=== PATIENT | male | born 1975 ===

== ENCOUNTER 2018-09-14 17:52 | Emergency (ER) | payer BC ==
[2018-09-14 18:18] VITALS: RESP 20; O2SAT 96
--- NOTE | 2018-09-14 18:35 | C.PDOC ---
History Of Present Illness 43 year old male presents to the ED for evaluation of flu-like symptoms which began yesterday. Patient reports generalized body aches, subjective fever, chills, and cough. He has been taking Vicks cough and cold medication and Advil without significant relief. Patient denies nausea, vomiting, diarrhea. Time Seen by Provider: 09/14/18 18:25 Chief Complaint (Nursing): Fever History Per: Patient History/Exam Limitations: no limitations Onset/Duration Of Symptoms: Hrs Current Symptoms Are (Timing): Still Present Associated Symptoms: Fever, Chills, Cough. denies: Nausea, Vomiting, Diarrhea Additional History Per: Patient Past Medical History Reviewed: Historical Data, Nursing Documentation, Vital Signs Vital Signs: Last Vital Signs Temp 102.3 F H 09/14/18 18:15 Pulse 108 H 09/14/18 18:15 Resp 20 09/14/18 18:15 BP 136/74 09/14/18 18:15 Pulse Ox 96 09/14/18 18:15 - Medical History PMH: No Chronic Diseases Surgical History: No Surg Hx Family History: States: Unknown Family Hx - Social History Hx Alcohol Use: No Hx Substance Use: No Review Of Systems Constitutional: Positive for: Fever, Chills Respiratory: Positive for: Cough Gastrointestinal: Negative for: Nausea, Vomiting, Diarrhea Musculoskeletal: Positive for: Other (generalized body aches ) Physical Exam - Physical Exam Appears: Non-toxic, No Acute Distress, Other (ill-appearing ) Skin: Normal Color, Warm, Dry, Other (warm to touch ) Head: Atraumatic, Normacephalic Eye(s): bilateral: Other (watery and erythematous ) Nose: Normal, No Discharge Oral Mucosa: Moist Throat: Erythema (mild ), No Exudate Neck: Supple Chest: Symmetrical, No Deformity, No Tenderness Cardiovascular: Rhythm Regular, No Murmur Respiratory: Normal Breath Sounds, No Rales, No Rhonchi, No Wheezing Extremity: Normal ROM, Capillary Refill (less than 2 seconds) Neurological/Psych: Oriented x3, Normal Speech, Normal Cognition ED Course And Treatment O2 Sat by Pulse Oximetry: 96 (on RA) Pulse Ox Interpretation: Normal Medical Decision Making Medical Decision Making: Progress: Patient with presumptive diagnosis of flu. Tylenol PO, Motrin PO and Tamiflu PO given. Disposition Counseled Patient/Family Regarding: Diagnosis, Need For Followup, Rx Given - Disposition Disposition: HOME/ ROUTINE Disposition Time: 18:33 Condition: STABLE Prescriptions: Ibuprofen [Motrin] 600 mg PO TID #15 tab Oseltamivir Cap [Tamiflu] 1 cap PO BID #10 cap Instructions: Flu, Adult (DC) Forms: General Discharge Instructions, [facility] (Urdu), Work Excuse - Clinical Impression Clinical Impression: Influenza-like illness - Scribe Statement The provider has reviewed the documentation as recorded by the Scribe (Meghan Phan) Provider Attestation: All medical record entries made by the Scribe were at my direction and personally dictated by me. I have reviewed the chart and agree that the record accurately reflects my personal performance of the history, physical exam, medical decision making, and the department course for this patient. I have also personally directed, reviewed, and agree with the discharge instructions and disposition.
--- NOTE | 2018-09-14 18:35 | C.PDOC ---
Time Seen by Provider: 09/14/18 18:25 Chief Complaint (Nursing): Fever Past Medical History Vital Signs: Last Vital Signs Temp 102.3 F H 09/14/18 18:15 Pulse 108 H 09/14/18 18:15 Resp 20 09/14/18 18:15 BP 136/74 09/14/18 18:15 Pulse Ox 96 09/14/18 18:15 - Social History Hx Alcohol Use: No Hx Substance Use: No ED Course And Treatment O2 Sat by Pulse Oximetry: 96 Disposition - Disposition Prescriptions: Ibuprofen [Motrin] 600 mg PO TID #15 tab Oseltamivir Cap [Tamiflu] 1 cap PO BID #10 cap Forms: [employer] ([place])
[2018-09-14 19:03] VITALS: BP 106/59; PULSE 100; TEMP 100.3
== END 2018-09-14 19:04 | disposition home or self-care (01) ==
LOC: C.ER 17:52
DX: J11.1 Influenza due to unidentified influenza virus with other respiratory manifestations (principal)